=== PATIENT | female | born 1990 | race Hispanic/Latino ===

== ENCOUNTER 2022-06-06 08:01 | Emergency (ER) | payer BC ==
[~2022-06-06] VITALS: Ht 165.1 cm; Wt 113.0 kg
[2022-06-06 08:12] VITALS: BP 129/95
[2022-06-06] MEDS ORDERED: ZOFRAN4 MG/TAB PO (08:23)
[2022-06-06 08:33] LABS: HEMATOCRIT 36.8 % (37.0-47.0); HEMOGLOBIN 12.2 g/dl (12.0-16.0); IMMATURE GRANULOCYTES 0.7 % (0.0-5.0); MEAN CORPUSCULAR HGB 29.8 pG CALC (26.0-32.0); MEAN CORPUSCULAR HGB CONC 33.2 g/dL CAL (32.0-36.0); NEUT# 6.41 thou/uL (2.00-7.15); RED BLOOD COUNT 4.09 mill/uL (4.20-5.60); RED CELL DISTRI WIDTH 13.5 % (11.5-15.5)
[2022-06-06 08:51] LABS: ALBUMIN 3.7 g/dL (3.2-5.0); ALKALINE PHOSPHATASE 165 u/l (38-126); ANION GAP 13 (6-22 (CALC)); BILIRUBIN, TOTAL 0.3 mg/dL (0.0-1.4); BUN 6 mg/dL (7-17); BUN/CREATININE RATIO 13 (12-20 (CALC)); CARBON DIOXIDE 22 mmol/l (22-30); CHLORIDE 106 mmol/l (95-108); CREATININE 0.5 mg/dL (0.5-1.0); GFR FOR AFR.AMER. > 60 ML/MIN (>=60 (CALC)); GFR OTHER RACES > 60 ML/MIN (>=60 (CALC)); POTASSIUM 3.8 mmol/l (3.5-5.1); SODIUM 137 mmol/l (137-146); TOTAL PROTEIN 6.9 g/dL (6.3-8.2)
[2022-06-06 08:55] LABS: SGOT/AST 30 u/l (14-36)
[2022-06-06 09:53] VITALS: BP 110/54
[2022-06-06] MEDS ORDERED: ZPAK PO (09:56)
[2022-06-06 10:34] VITALS: BP 123/75
== END 2022-06-06 11:20 | disposition home or self-care (01) | DRG 833 ==
LOC: ED 08:01
PROVIDERS: Family Medicine
DX: O99.512 Diseases of the respiratory system complicating pregnancy, second trimester (principal); J06.9 Acute upper respiratory infection, unspecified; Z3A.25 25 weeks gestation of pregnancy; Z59.1 Inadequate housing; Z20.822 Contact with and (suspected) exposure to COVID-19

== ENCOUNTER 2022-07-11 21:54 | Emergency (ER) | payer BC, MEDICAID ==
[~2022-07-11] VITALS: Ht 165.1 cm; Wt 111.0 kg
[~2022-07-11 21:54] MED LIST: ZOFRAN4 MG/TAB PO; ZPAK PO
[2022-07-11] MEDS ORDERED: PRENATA3 PO (22:17)
[2022-07-11 22:24] LABS: HEMATOCRIT 34.6 % (37.0-47.0); HEMOGLOBIN 11.3 g/dl (12.0-16.0); IMMATURE GRANULOCYTES 0.9 % (0.0-5.0); MEAN CELL VOLUME 88.7 fL CALC (80.0-100.0); MEAN CORPUSCULAR HGB CONC 32.7 g/dL CAL (32.0-36.0); NEUT# 9.22 thou/uL (2.00-7.15); RED BLOOD COUNT 3.9 mill/uL (4.20-5.60); RED CELL DISTRI WIDTH 13.9 % (11.5-15.5)
[2022-07-11 22:29] LABS: ALBUMIN 3.5 g/dL (3.2-5.0); ALKALINE PHOSPHATASE 178 u/l (38-126); ANION GAP 10 (6-22 (CALC)); BILIRUBIN, TOTAL 0.3 mg/dL (0.0-1.4); BUN 7 mg/dL (7-17); BUN/CREATININE RATIO 13 (12-20 (CALC)); CARBON DIOXIDE 25 mmol/l (22-30); CHLORIDE 106 mmol/l (95-108); CREATININE 0.5 mg/dL (0.5-1.0); GFR FOR AFR.AMER. > 60 ML/MIN (>=60 (CALC)); GFR OTHER RACES > 60 ML/MIN (>=60 (CALC)); POTASSIUM 3.7 mmol/l (3.5-5.1); SGOT/AST 27 u/l (14-36); SODIUM 137 mmol/l (137-146); TOTAL PROTEIN 6.6 g/dL (6.3-8.2)
[2022-07-11 22:48] VITALS: BP 115/77
== END 2022-07-11 22:48 | disposition left against medical advice (07) | DRG 833 ==
LOC: ED 21:54
PROVIDERS: Emergency Medicine
DX: O46.93 Antepartum hemorrhage, unspecified, third trimester (principal); Z3A.30 30 weeks gestation of pregnancy; Z53.29 Procedure and treatment not carried out because of patient's decision for other reasons

== ENCOUNTER 2022-11-28 18:34 | Emergency (ER) | payer BC, MEDICAID ==
[2022-11-28] VITALS (8 sets, daily range): BP systolic 84–119; BP diastolic 50–80
[~2022-11-28] VITALS: Ht 165.1 cm; Wt 111.1 kg
[~2022-11-28 18:34] MED LIST changes: +PRENATA3 PO
[2022-11-28 21:44] LABS: BASO% 0.4 % (0-3); EOS% 0.1 % (0-8); IMMATURE GRANULOCYTES 0.2 % (0.0-5.0); LYMPH% 11.9 % (15-41); MEAN CELL VOLUME 85.1 fL CALC (80.0-100.0); MEAN CORPUSCULAR HGB 27.6 pG CALC (26.0-32.0); MEAN CORPUSCULAR HGB CONC 32.4 g/dL CAL (32.0-36.0); MONO% 6.4 % (2-13); NEUT# 9.97 thou/uL (2.00-7.15); RED BLOOD COUNT 4.82 mill/uL (4.20-5.60); RED CELL DISTRI WIDTH 14.6 % (11.5-15.5)
[2022-11-28 21:45] LABS: HEMOGLOBIN 13.3 g/dl (12.0-16.0)
[2022-11-28 22:01] LABS: ALBUMIN 4.5 g/dL (3.2-5.0); ALKALINE PHOSPHATASE 141 u/l (38-126); AMYLASE 52 u/l (30-110); ANION GAP 15 (6-22 (CALC)); BILIRUBIN, TOTAL 0.5 mg/dL (0.02-1.3); BUN 13 mg/dL (7-17); BUN/CREATININE RATIO 16 (12-20 (CALC)); CARBON DIOXIDE 25 mmol/l (22-30); CHLORIDE 101 mmol/l (95-108); CREATININE 0.8 mg/dL (0.5-1.0); GFR FOR AFR.AMER. > 60 ML/MIN (>=60 (CALC)); GFR OTHER RACES > 60 ML/MIN (>=60 (CALC)); LIPASE 34 u/l (23-300); POTASSIUM 3.9 mmol/l (3.5-5.1); SGOT/AST 68 u/l (14-36); SODIUM 137 mmol/l (137-146); TOTAL PROTEIN 7.8 g/dL (6.3-8.2)
[2022-11-28 23:24] LABS: URINE BILIRUBIN - DIPSTICK NEGATIVE (NEGATIVE); URINE BLOOD DIPSTICK NEGATIVE (NEGATIVE); URINE COLOR YELLOW; URINE GLUCOSE - DIPSTICK NEGATIVE (NEGATIVE); URINE KETONE 15 mg/dL (NEGATIVE); URINE LEUK ESTERASE TRACE (NEGATIVE); URINE SPECIFIC GRAVITY <=1.005; URINE UROBILINOGEN - DIPSTICK 0.2 E.U./dL (0.2)
[2022-11-28 23:37] LABS: URINE NITRITE - DIPSTICK NEGATIVE (Negative)
[2022-11-28 23:55] LABS: URINE PROTEIN - DIPSTICK NEGATIVE (NEG-TRACE)
[2022-11-29 00:54] VITALS: BP 115/77
[2022-11-29 01:00] VITALS: BP 114/76
[2022-11-29] MEDS ORDERED: ONDANSETRON4 MG PO (01:28)
[2022-11-29 01:30] VITALS: BP 104/72
[2022-11-29 01:37] VITALS: BP 104/72
== END 2022-11-29 01:47 | disposition home or self-care (01) | DRG 866 ==
LOC: ED 18:34
PROVIDERS: Emergency Medicine
DX: B34.9 Viral infection, unspecified (principal); R10.9 Unspecified abdominal pain; R50.9 Fever, unspecified; Z20.822 Contact with and (suspected) exposure to COVID-19
CPT/HCPCS: Q9967

== ENCOUNTER 2024-08-09 17:53 | Emergency (ER) | payer BC, MEDICAID ==
[~2024-08-09] VITALS: Ht 165.1 cm; Wt 111.0 kg
[2024-08-09] VITALS (11 sets, daily range): BP systolic 90–129; BP diastolic 32–87
[~2024-08-09 17:53] MED LIST changes: +ONDANSETRON4 MG PO; +PERCOCET 5/325M1 TAB PO
[2024-08-09] MEDS ORDERED: ASPIRIN 81 MG/TAB PO ONE (18:30)
[2024-08-09] MEDS ORDERED: Levofloxacin 750 mg Premix 150 ML IV ONE (18:45)
[2024-08-09 18:53] LABS: BASO% 0.5 % (0-3); EOS% 2.6 % (0-8); HEMATOCRIT 38.8 % (37.0-47.0); HEMOGLOBIN 12.6 g/dl (12.0-16.0); IMMATURE GRANULOCYTES 0.2 % (0.0-5.0); MEAN CELL VOLUME 90.7 fL CALC (80.0-100.0); MEAN CORPUSCULAR HGB 29.4 pG CALC (26.0-32.0); MEAN CORPUSCULAR HGB CONC 32.5 g/dL CAL (32.0-36.0); MONO% 5.6 % (2-13); NEUT# 5.61 thou/uL (2.00-7.15); NEUT% 64.1 % (42-76); RED BLOOD COUNT 4.28 mill/uL (4.20-5.60); RED CELL DISTRI WIDTH 13.4 % (11.5-15.5)
[2024-08-09 19:04] LABS: ALKALINE PHOSPHATASE 90 u/l (38-126); ANION GAP 12 (6-22 (CALC)); BILIRUBIN, TOTAL 0.3 mg/dL (0.02-1.3); BUN 14 mg/dL (7-17); BUN/CREATININE RATIO 24 (12-20 (CALC)); CARBON DIOXIDE 28 mmol/l (22-30); CHLORIDE 103 mmol/l (95-108); CREATININE 0.6 mg/dL (0.5-1.0); ESTIMATED GFR 121 ML/MIN (>=90 (CALC)); POTASSIUM 3.8 mmol/l (3.5-5.1); SGOT/AST 35 u/l (14-36); SODIUM 139 mmol/l (137-146); TOTAL PROTEIN 7.3 g/dL (6.3-8.2)
[2024-08-09] MEDS ORDERED: LACTATED RINGER'S 1,000 ML IV ONE (19:45)
[2024-08-09] MEDS ORDERED: LEVOFLOXACIN750 MG PO (20:26)
== END 2024-08-09 21:24 | disposition home or self-care (01) | DRG 203 ==
LOC: ED 17:53
PROVIDERS: Family Medicine
DX: J20.9 Acute bronchitis, unspecified (principal)

== ENCOUNTER 2024-08-12 10:32 | Emergency (ER) | payer BC, MEDICAID ==
[~2024-08-12] VITALS: Ht 165.1 cm; Wt 113.3 kg
[~2024-08-12 10:32] MED LIST changes: +LEVOFLOXACIN750 MG PO
[2024-08-12 10:45] VITALS: BP 105/63
[2024-08-12] MEDS ORDERED: ONDANSETRON HCl 4 MG/2 ML SDV IV ONE (10:45)
[2024-08-12] MEDS ORDERED: predniSONE 20 MG/TAB PO ONE (10:55)
[2024-08-12] MEDS ORDERED: IPRATROPIUM-Albuterol 0.5MG-2.5MG/3 ML NEB ONE ×2 (10:55→11:00)
[2024-08-12 11:00] VITALS: BP 124/84
[2024-08-12] MEDS ORDERED: PREDNISONE50 MG PO (11:02)
[2024-08-12] MEDS ORDERED: ZOFRAN4 MG/TAB PO (11:02)
[2024-08-12] MEDS ORDERED: DOXYCYCLINE100 MG PO (11:02)
[2024-08-12] MEDS ORDERED: VENTOLIN HFA108 MCG PO (11:02)
[2024-08-12] MEDS ORDERED: CHERATUSSIN PO (11:02)
[2024-08-12 11:11] VITALS: BP 124/84
[2024-08-12 11:16] VITALS: BP 108/54
== END 2024-08-12 11:25 | disposition home or self-care (01) | DRG 203 ==
LOC: ED 10:32
DX: J20.9 Acute bronchitis, unspecified (principal)
CPT/HCPCS: J2405